=== PATIENT | male | born 1960 | race Caucasian/White ===

== ENCOUNTER → 2016-09-22 | Outpatient (CLI) | payer OTHER ==
--- NOTE | 2016-09-22 13:55 | XR ---
EXAMINATION TYPE: XR abdomen 1V DATE OF EXAM: 09/22/2016 12:28 PM COMPARISON: NONE HISTORY: Left lower quadrant pain TECHNIQUE: One view abdominal series FINDINGS: The osseous structures are intact. Osteitis pubis condensans noted. 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 SI joints symmetric. The bowel gas pattern is nonspecific. Lung bases are clear. IMPRESSION: 1. Nonspecific abdomen. No diagnostic evidence of obstruction.
--- NOTE | 2016-09-22 13:58 | XR ---
EXAMINATION TYPE: XR pelvis AP view DATE OF EXAM: 09/22/2016 12:28 PM COMPARISON: NONE HISTORY: 56 year-old male left lower quadrant pain FINDINGS: Multiple surgical clips in the pelvis. Some coils from prior hernia repair also noted in the lower pe lvis. Central prosthetic calcifications. Mild degenerative change of both hips. IMPRESSION: Surgical clips within the pelvis and some central prostatic calcifications.
== END | disposition home or self-care (01) ==
LOC: PTMAIN 12:00
PROVIDERS: ATTEND Internal Medicine Geriatric Medicine
DX: N42.89 Other specified disorders of prostate (principal)
CPT/HCPCS: 72170; 74000